=== PATIENT | male | born 1970 | race Caucasian/White ===

== ENCOUNTER 2016-05-20 09:22 | Emergency (ER) | payer OTHER ==
--- NOTE | 2016-05-20 13:41 | ED NURSING NOTES ---
Clinical Report - Nurses [facility] [place] [address] 05/20/2016 9:26 Patient: MERI CARLOS TRIAGE Chief Complaint: (Vomiting Blood). --09:48 Henri Maciel R.N. 09:40 05/20/16. BP: 122/61. HR: 74. RR: 18. O2 saturation: 98%. Temp: 98.5 F. Pain level now 02/11. --09:48 Henri Maciel R.N. Weight: 117.9 kg stated. Height/Length: 73 inches Per Patient. BMI: 34.3. --09:47 Henri Maciel R.N. Medications RisperDAL Oral. --09:43 Henri Maciel R.N. Clozaril Oral. --09:44 Henri Maciel R.N. Allergies None. --09:44 Henri Maciel R.N. History ( Patient with history of schizophrenia. Normally get care at [facility] This started just prior to arrival and last night. Onset. (3 days ago). ( Patient states drinks heavily and has been vomiting blood since just [employer] or maybe past 3 days. States drank large quantities of ETOH last night or maybe has not drank for 3 days. Vomited in sink in ER. No blood seen). 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 SOCIAL HX: Smoker- current status unknown. Alcohol use. History of drug use: marijuana. FALL RISK ASSESSMENT: Fall risk assessment completed. No fall risk identified. --09:48 Henri Maciel R.N. Interventions ID band on patient. To room. --09:48 Henri Maciel R.N. PHYSICAL ASSESSMENT GENERAL / NEURO / PSYCH: Alert. Oriented X 4. Appears in no acute distress. RESPIRATORY: Respirations not labored. GI / : Abdomen soft and normal bowel sounds. SKIN: Skin is warm and dry. --09:49 Henri Maciel R.N. NURSING PROGRESS NOTES Patient gowned. Patient identifiers checked. Call light placed in reach. Bed placed in lowest position. --09:49 Henri Maciel R.N. 10:59 05/20/16. BP: 124/74. HR: 76. RR: 18. O2 saturation: 98%. Temp: 98 F. Pain level now 09/11. --11:00 Henri Maciel R.N. 10:46 05/20/2016 Site #1 started via IV in the right antecubital space with an 20g angiocath, with aseptic technique and good blood return; one attempt. Blood drawn: rainbow set. Labeled in the presence of the patient and sent to the lab. Saline lock flushed with 10 mL saline. --11:02 Henri Maciel R.N. 10:52 05/20/2016 Started bag #1 1000 mL IV Fluids IV NS (Saline); at 1000 mL/hr over 1 hour(s) via site #1 --11:02 Henri Maciel R.N. 10:52 05/20/2016 Zofran (Ondansetron HCl) IVP 4 mg given over 1 minute(s) via site #1. --11:02 Henri Maciel R.N. 11:35 05/20/2016 Started bag #1 1000 mL IV Fluids IV NS (Saline); at 1000 mL/hr over 1 hour(s) via site #1 --12:58 Henri Maciel R.N. 11:59 05/20/2016 IV Fluids IV NS Discontinued: bag #1 completed. Total amount infused: 1000 mL. --12:59 Henri Maciel R.N. ( Patient states feels better now. Taking PO fluids). --12:59 Henri Maciel R.N. 12:22 05/20/2016 Zofran (Ondansetron HCl) IVP 4 mg given. via site #1. --13:23 Henri Maciel R.N. 12:59 05/20/2016 IV Fluids IV NS Discontinued: bag #2 completed. Total amount infused: 1000 mL. --12:59 Henri Maciel R.N. 13:45 05/20/2016 Site #1 removed upon discharge. Catheter intact. Manual pressure and bandaid applied. --14:10 Maggie Rivas R.N. 14:02 05/20/2016 Phenergan (Promethazine HCl) IM 25 mg given. Given in the left deltoid. Confirmed 5 rights. --14:02 Henri Maciel R.N. DISPOSITION / DISCHARGE 13:00. Condition at departure: improved. ( Patient ambulated to bathroom, voided and collected urine sample. Denies nausea or vomiting). --14:03 Henri Maciel R.N. 13:45. ( Patient got up and dressed and then had small emesis with small streaks of blood. Dr Peterson notified, orders received.). --14:05 Henri Maciel R.N. 14:09 05/20/16. BP: 119/83. HR: 88. RR: 16. O2 saturation: 100%. --14:11 Maggie Rivas R.N. Locked/Released at 05/20/2016 14:11 by Maggie Rivas R.N.
--- NOTE | 2016-05-20 13:41 | ED CLINICAL REPORT ---
Clinical Report - Physicians/Mid Levels [facility] [address] [place] [address] 05/20/2016 9:26 Patient: MERI CARLOS Time Seen: 10:00. Historian- patient. HISTORY OF PRESENT ILLNESS Chief Complaint: VOMITING BLOOD. This started just prior to arrival and has been moderate. (Heavy drinking for a year. Vomiting for 3-4 days. Vomiting blood today. No alcohol in 3 days). Is still present. It was abrupt in onset. The patient has had nausea and vomiting but not had dark stools or rectal bleeding or pain. No constipation, diarrhea or abdominal pain. (Nl bm yesterday Last drink 2-3 nights ago). Similar symptoms previously: None. REVIEW OF SYSTEMS The patient has had dizziness. He has had a sore throat, fever and a headache. No decreased vision, ear pain, difficulty breathing, skin rash or suicidal thoughts. No difficulty with urination. Schizophrenia - stable on meds, still hears voices. PAST HISTORY CHC Illness: Alcoholism, schizophrenia, Acne Ops: R knee. SOCIAL HISTORY Current every day smoker. Alcohol use; consumes six beers. ADDITIONAL NOTES The nursing notes have been reviewed. PHYSICAL EXAM Vital Signs: 05/20/2016 14:09 BP: 119/83. HR: 88. RR: 16. O2 saturation: 100%. 05/20/2016 10:59 BP: 124/74. HR: 76. RR: 18. O2 saturation: 98%. Temp: 98 F. 05/20/2016 09:40 BP: 122/61. HR: 74. RR: 18. O2 saturation: 98%. Temp: 98.5 F. Appearance: Alert. Anxious. Patient in moderate distress. Eyes: Eyes normal inspection. No scleral icterus. ENT: Pharynx normal. Neck: Normal inspection. CVS: Normal heart rate and rhythm. Heart sounds normal. Respiratory: No respiratory distress. Breath sounds normal. Abdomen: Soft and nontender. Skin: Skin warm. Normal skin color. Extremities: Extremities exhibit normal ROM. No lower extremity edema. Neuro: No alteration in mental status. LABS, X-RAYS, AND EKG Laboratory Tests: UA-Culture if indicated: (SHANNA: 05/20/2016 13:20) ( [facility] 05/20/2016 13:24) IP Test Result Flag Units (Reference) URINE COLOR YELLOW URINE APPEARANCE CLEAR URINE GLUCOSE NEGATIVE (NEGATIVE) URINE BILIRUBIN NEGATIVE (NEGATIVE) URINE KETONE 3+ (NEGATIVE) URINE SPECIFIC GRAVITY 1.015 (1.010-1.030) URINE PH 7.0 (5.0-8.0) URINE PROTEIN 1+ (NEGATIVE) URINE UROBILINOGEN 0.2 EU/dL (0.2-1.0) URINE NITRITE NEGATIVE (NEGATIVE) URINE BLOOD NEGATIVE (NEGATIVE) URINE LEUK ESTERASE NEGATIVE (NEGATIVE) CBC w Diff: (SHANNA: 05/20/2016 10:25) ( [facility] 05/20/2016 11:08) Final results Test Result Flag Units (Reference) WHITE BLOOD COUNT 6.2 K/uL (4.5-11.5) RED BLOOD COUNT 5.21 M/uL (4.50-5.90) HEMOGLOBIN 14.7 gm/dL (13.5-17.5) HEMATOCRIT 46.6 % (41.0-53.0) MEAN CELL VOLUME 89 fL (80-100) MEAN CORPUSCULAR HGB 28 pg (26-34) MEAN CORPUSCULAR HGB CONC 32 g/dL (31-37) RED CELL DISTRIBUTION WIDTH 13.5 % (11.6-14.8) PLATELET COUNT 116 L K/uL (150-400) LYMPH % 49.8 H % (25-40) MONO % 3.8 % (3-14) GRANULOCYTE % 46.4 PT with INR: (SHANNA: 05/20/2016 10:25) ( [facility] 05/20/2016 11:15) Final results Test Result Flag Units (Reference) INR 1.0 (0.8-1.2) Low Intensity Therapy: INR 1.5-2.0 PT range 18.5-23.1Mod.Intensity Therapy: INR 2.0-3.0 PT range 23.1-31.5High Intensity Therapy: INR 2.5-3.5 PT range 27.4-35.5High Intensity Therapy 2: INR 3.0-4.0 PT range 31.5-39.3 CMP: (SHANNA: 05/20/2016 10:25) ( MsgRcvd 05/20/2016 11:15) Final results Test Result Flag Units (Reference) GLUCOSE 117 H mg/dL (70-110) BUN 19 H mg/dL (7-18) CREATININE 0.9 mg/dL (0.6-1.3) Estimated GFR >60 mL/min Estimated GFR- >60 mL/min Note: Persistent reduction over 3 months in eGFR<60 mL/min/1.73 m2 defines CKD. Patients with eGFR values>=60 mL/min/1.73 m2 may also have CKD if evidence ofpersistent proteinuria. Additional information may be foundat www.kidney.org. SODIUM 145 mmol/L (136-145) POTASSIUM 3.6 mmol/L (3.5-5.1) CHLORIDE 103 mmol/L (98-107) CARBON DIOXIDE 35 H mmol/L (21-32) CALCIUM 9.7 mg/dL (8.5-10.1) TOTAL PROTEIN 8.3 H g/dL (6.4-8.2) ALBUMIN 4.9 g/dL (3.3-5.0) BILIRUBIN, TOTAL 0.7 mg/dL (0.0-1.0) ALKALINE PHOSPHATASE 59 U/L (46-116) AST (SGOT) 40 H U/L (15-37) ALT (SGPT) 88 H U/L (12-78) LIPASE 129 U/L (73-393) ETHYL ALCOHOL <3 L mg/dL (3-10) . PROGRESS AND PROCEDURES Course of Care: 13:33 05/20/16. recheck abd mild tederness Pt is given Zofran and phenergan for control of nausea and vomiting. He is given 2 liters of NS. His nausea and vomiting are significantly improved and should be self limiting. He had one small emesis prior to DC. I think home care with anti-emetics is warranted with recheck in 12 hours if vomiting persists is appropriate. Disposition: Discharged. Condition: stable. CLINICAL IMPRESSION Gloria Morrison syndrome Alcoholic gastritis INSTRUCTIONS (RECHECK IN ED IN 12 HOURS UNLESS PAIN IS BETTER OR STILL VOMITING CONSIDER ALCOHOL TREATMENT THE BLOOD IN THE VOMIT WAS FROM THE ESOPHAGUS IMMEDIATE RECHECK IF FEELING FAINT ON STANDING. NO ALCOHOL, ASPIRIN OR IBUPROFEN). Prescription Medications: Zofran 4 mg: Take 1 orally every six hours as needed for nausea/vomiting. Dispense ten (10). No refills. Substitution is permissible. Pepcid 20 mg tablets: Take 1 orally every 12 hours. Dispense thirty (30). No refills. Substitution is permissible. risperidone 2 mg #10 take at night. Follow-up: Follow up with your doctor. Call for the next available appointment. Understanding of the discharge instructions verbalized by patient and family. (Electronically signed by Meri Peterson MD 05/21/2016 12:23)
--- NOTE | 2016-05-20 13:41 | ED ORDER SUMMARY ---
..... Patient: MERI CARLOS OrderSheet [facility] VisitID: [id number] [address] [place] [address] 45y, M Registration Date/Time: 05/20/2016 ORDER SHEET Weight: 117.9 kg (stated) Allergies: None GENERAL ORDERS: CBC w Diff Urgent (10:05/20/2016 Tre JIANG) (Ack 10:08 Zohra) (11:02 GMarshall R.N.) CMP Urgent (10:05/20/2016 Tre JIANG) (Ack 10:08 Zohra) (11:02 GMarshall R.N.) UA-Culture if indicated Urgent (10:05/20/2016 Tre JIANG) (Ack 10:08 Zohra) (13:22 GMarshall R.N.) Lipase Urgent (10:05/20/2016 Tre JIANG) (Ack 10:08 Zohra) (11:02 GMarshall R.N.) PT with INR Urgent (10:05/20/2016 Tre JIANG) (Ack 10:08 oZhra) (11:02 GMarshall R.N.) Ethyl Alcohol Urgent (10:05/20/2016 Tre JIANG) (Ack 10:44 LTapper) (11:02 GMarshall R.N.) MEDICATION ORDERS: Phenergan IM 25 mg (NOW) (13:57 05/20/2016 Tre JIANG) (14:02 GMarshall R.N.) IV FLUIDS: IV NS with Folic Acid 1 mg/L, Multivitamin Concentrate Intravenous 1 amp/L, Thiamine HCl 100 mg/L: initial bolus none -, then 1000 mL/hr for X1 (NOW); Urgent (IV #1) (10:05/20/2016 Tre JIANG) (Ack 10:24 GMarshall R.N.) (12:58 GMarshall R.N.) IV NS : initial bolus none -, then 1000 mL/hr for 1h (NOW); Urgent (IV #2) (10:05/20/2016 Tre JIANG) (Ack 10:24 GMarshall R.N.) (11:02 GMarshall R.N.) Zofran IV 4 mg (NOW) (10:09 05/20/2016 Tre JIANG) (Ack 10:24 GMarshall R.N.) (11:02 GMarshall R.N.) Zofran IV 4 mg (NOW) (13:21 05/20/2016 GMarshall R.N. verbal order read back to Tre JIANG) (13:23 GMarshall R.N.) ORDER SHEET NOTES: [Electronically signed by Maggie Rivas R.N. (14:11 05/20/2016)] [Electronically signed by Meri Peterson MD (12:23 05/21/2016)] [Electronically locked/signed by Maggie Rivas R.N. (14:11 05/20/2016)]
--- NOTE | 2016-05-20 13:41 | ED NURSING NOTES ---
Clinical Report - Nurses [facility] [place] [address] 05/20/2016 9:26 Patient: MERI CARLOS TRIAGE Chief Complaint: (Vomiting Blood). --09:48 Henri Maciel R.N. 09:40 05/20/16. BP: 122/61. HR: 74. RR: 18. O2 saturation: 98%. Temp: 98.5 F. Pain level now 02/11. --09:48 Henri Maciel R.N. Weight: 117.9 kg stated. Height/Length: 73 inches Per Patient. BMI: 34.3. --09:47 Henri Maciel R.N. Medications RisperDAL Oral. --09:43 Henri Maciel R.N. Clozaril Oral. --09:44 Henri Maciel R.N. Allergies None. --09:44 Henri Maciel R.N. History ( Patient with history of schizophrenia. Normally get care at [facility].). This started just prior to arrival and last night. Onset. (3 days ago). ( Patient states drinks heavily and has been vomiting blood since just CHARRER or maybe past 3 days. States drank large quantities of ETOH last night or maybe has not drank for 3 days. Vomited in sink in ER. No blood seen). 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 SOCIAL HX: Smoker- current status unknown. Alcohol use. History of drug use: marijuana. FALL RISK ASSESSMENT: Fall risk assessment completed. No fall risk identified. --09:48 Henri Maciel R.N. Interventions ID band on patient. To room. --09:48 Henri Maciel R.N. PHYSICAL ASSESSMENT GENERAL / NEURO / PSYCH: Alert. Oriented X 4. Appears in no acute distress. RESPIRATORY: Respirations not labored. GI / : Abdomen soft and normal bowel sounds. SKIN: Skin is warm and dry. --09:49 Henri Maciel R.N. NURSING PROGRESS NOTES Patient gowned. Patient identifiers checked. Call light placed in reach. Bed placed in lowest position. --09:49 Henri Maciel R.N. 10:59 05/20/16. BP: 124/74. HR: 76. RR: 18. O2 saturation: 98%. Temp: 98 F. Pain level now 09/11. --11:00 Henri Maciel R.N. 10:46 05/20/2016 Site #1 started via IV in the right antecubital space with an 20g angiocath, with aseptic technique and good blood return; one attempt. Blood drawn: rainbow set. Labeled in the presence of the patient and sent to the lab. Saline lock flushed with 10 mL saline. --11:02 Henri Maciel R.N. 10:52 05/20/2016 Started bag #1 1000 mL IV Fluids IV NS (Saline); at 1000 mL/hr over 1 hour(s) via site #1 --11:02 Henri Maciel R.N. 10:52 05/20/2016 Zofran (Ondansetron HCl) IVP 4 mg given over 1 minute(s) via site #1. --11:02 Henri Maciel R.N. 11:35 05/20/2016 Started bag #1 1000 mL IV Fluids IV NS (Saline); at 1000 mL/hr over 1 hour(s) via site #1 --12:58 Henri Maciel R.N. 11:59 05/20/2016 IV Fluids IV NS Discontinued: bag #1 completed. Total amount infused: 1000 mL. --12:59 Henri Maciel R.N. ( Patient states feels better now. Taking PO fluids). --12:59 Henri Maciel R.N. 12:22 05/20/2016 Zofran (Ondansetron HCl) IVP 4 mg given. via site #1. --13:23 Henri Maciel R.N. 12:59 05/20/2016 IV Fluids IV NS Discontinued: bag #2 completed. Total amount infused: 1000 mL. --12:59 Henri Maciel R.N. 13:45 05/20/2016 Site #1 removed upon discharge. Catheter intact. Manual pressure and bandaid applied. --14:10 Maggie Rivas R.N. 14:02 05/20/2016 Phenergan (Promethazine HCl) IM 25 mg given. Given in the left deltoid. Confirmed 5 rights. --14:02 Henri Maciel R.N. DISPOSITION / DISCHARGE 13:00. Condition at departure: improved. ( Patient ambulated to bathroom, voided and collected urine sample. Denies nausea or vomiting). --14:03 Henri Maciel R.N. 13:45. ( Patient got up and dressed and then had small emesis with small streaks of blood. Dr Peterson notified, orders received.). --14:05 Henri Maciel R.N. 14:09 05/20/16. BP: 119/83. HR: 88. RR: 16. O2 saturation: 100%. --14:11 Maggie Rivas R.N. Locked/Released at 05/20/2016 14:11 by Maggie Rivas R.N.
--- NOTE | 2016-05-20 13:41 | ED ORDER SUMMARY ---
..... Patient: MERI CARLOS OrderSheet [facility] VisitID: [id number] [address] [place] [address] 45y, M Registration Date/Time: 05/20/2016 ORDER SHEET Weight: 117.9 kg (stated) Allergies: None GENERAL ORDERS: CBC w Diff Urgent (10:05/20/2016 Tre JIANG) (Ack 10:08 Zohra) (11:02 GMarshall R.N.) CMP Urgent (10:05/20/2016 Tre JIANG) (Ack 10:08 Zohra) (11:02 GMarshall R.N.) UA-Culture if indicated Urgent (10:05/20/2016 Tre JIANG) (Ack 10:08 Zohra) (13:22 GMarshall R.N.) Lipase Urgent (10:05/20/2016 Tre JIANG) (Ack 10:08 Zohra) (11:02 GMarshall R.N.) PT with INR Urgent (10:05/20/2016 Tre JIANG) (Ack 10:08 Zohra) (11:02 GMarshall R.N.) Ethyl Alcohol Urgent (10:05/20/2016 Tre JIANG) (Ack 10:44 LTapper) (11:02 GMarshall R.N.) MEDICATION ORDERS: Phenergan IM 25 mg (NOW) (13:57 05/20/2016 Tre JIANG) (14:02 GMarshall R.N.) IV FLUIDS: IV NS with Folic Acid 1 mg/L, Multivitamin Concentrate Intravenous 1 amp/L, Thiamine HCl 100 mg/L: initial bolus none -, then 1000 mL/hr for X1 (NOW); Urgent (IV #1) (10:05/20/2016 Tre JIANG) (Ack 10:24 GMarshall R.N.) (12:58 GMarshall R.N.) IV NS : initial bolus none -, then 1000 mL/hr for 1h (NOW); Urgent (IV #2) (10:05/20/2016 Tre JIANG) (Ack 10:24 GMarshall R.N.) (11:02 GMarshall R.N.) Zofran IV 4 mg (NOW) (10:09 05/20/2016 Tre JIANG) (Ack 10:24 GMarshall R.N.) (11:02 GMarshall R.N.) Zofran IV 4 mg (NOW) (13:21 05/20/2016 GMarshall R.N. verbal order read back to Tre JIANG) (13:23 GMarshall R.N.) ORDER SHEET NOTES: [Electronically signed by Maggie Rivas R.N. (14:11 05/20/2016)] [Electronically signed by Meri Peterson MD (12:23 05/21/2016)] [Electronically locked/signed by Maggie Rivas R.N. (14:11 05/20/2016)]
--- NOTE | 2016-05-21 12:23 | ED MAR SUMMARY ---
..... Medication Administration Record [facility] [address] [place] [address] Patient: MERI CARLOS Visit ID: [id number] 45y, M Weight: 117.9 kg Height/Length: 73 in BMI: 34.3 ALLERGIES: None Start 10:52 05/20/2016 Henri Maciel R.N., Stop 11:59 05/20/2016 Henri Maciel R.N. Medication Administered: IV NS (SALINE), Dose: IV Fluids over 1 hour(s), Rate: 1000 mL/hr, Dispensed: 1000 mL bag, Site: #1 right AC. Medication Ordered: IV NS : initial bolus none -, then 1000 mL/hr for 1h (NOW); Urgent (IV #2). Given 10:05/20/2016 Henri Maciel R.N. Medication Administered: ZOFRAN [IVP] (ONDANSETRON HCL), Dose: 4 mg IVP over 1 minute(s), Site: #1 right AC. Medication Ordered: Zofran IV 4 mg (NOW). Start 11:35 05/20/2016 Henri Maciel R.N., Stop 12:59 05/20/2016 Henri Maciel R.N. Medication Administered: IV NS (SALINE), Dose: IV Fluids over 1 hour(s), Rate: 1000 mL/hr, Dispensed: 1000 mL bag, Site: #1 right AC. Medication Ordered: IV NS with Folic Acid 1 mg/L, Multivitamin Concentrate Intravenous 1 amp/L, Thiamine HCl 100 mg/L: initial bolus none -, then 1000 mL/hr for X1 (NOW); Urgent (IV #1). Given 12:22 05/20/2016 Henri Maciel R.N. Medication Administered: ZOFRAN [IVP] (ONDANSETRON HCL), Dose: 4 mg IVP, Site: #1 right AC. Medication Ordered: Zofran IV 4 mg (NOW). Given 14:02 05/20/2016 Henri Maciel R.N. Medication Administered: PHENERGAN [IM] (PROMETHAZINE HCL), Dose: 25 mg IM. Medication Ordered: Phenergan IM 25 mg (NOW).
--- NOTE | 2016-05-21 12:23 | ED MED RECONCILIATION SUMMARY ---
Patient: KRAIG CARLOS Medication Reconciliation Report [facility] VisitID: [id number] [address] [place] [address] 45y, M Registration Date/Time: 05/20/2016 Weight: 117.9 kg Height/Length: 73 in. BMI: 34.3 ALLERGIES: None The patient's Home Medications are listed below: THE FOLLOWING MEDICATIONS NEED TO BE RECONCILED: Clozaril Oral RisperDAL Oral The source(s) of the original Home Medication information: Not obtained. The following Medications were given to the patient in the Emergency Department: IV NS IV Fluids bolus 0, then 1000 mL/hr, administered: 05/20/2016 10:52:00 AM Zofran [IVP] IVP 4 mg, administered: 05/20/2016 10:52:00 AM IV NS IV Fluids bolus 0, then 1000 mL/hr, administered: 05/20/2016 11:35:00 AM Zofran [IVP] IVP 4 mg, administered: 05/20/2016 12:22:00 PM Phenergan [IM] IM 25 mg, administered: 05/20/2016 2:02:00 PM The following Medications were prescribed to the patient: Zofran 4 mg: Take 1 orally every six hours as needed for nausea/vomiting. Dispense ten (10). No refills. Substitution is permissible. -- Kraig Peterson MD risperidone 2 mg #10 take at night. -- Kraig Peterson MD Pepcid 20 mg tablets: Take 1 orally every 12 hours. Dispense thirty (30). No refills. Substitution is permissible. -- Kraig Peterson MD
--- NOTE | 2016-05-21 12:23 | ED DISCHARGE INSTRUCTIONS ---
Patient: MERI CARLOS General Instructions [facility] VisitID: [id number] [address] [place] [address] 45y, M Registration Date/Time: 05/20/2016 Gloria Morrison syndrome Alcoholic gastritis INSTRUCTIONS (RECHECK IN ED IN 12 HOURS UNLESS PAIN IS BETTER OR STILL VOMITING CONSIDER ALCOHOL TREATMENT THE BLOOD IN THE VOMIT WAS FROM THE ESOPHAGUS IMMEDIATE RECHECK IF FEELING FAINT ON STANDING. NO ALCOHOL, ASPIRIN OR IBUPROFEN). Prescription Medications: Zofran 4 mg: Take 1 orally every six hours as needed for nausea/vomiting. Dispense ten (10). No refills. Substitution is permissible. Pepcid 20 mg tablets: Take 1 orally every 12 hours. Dispense thirty (30). No refills. Substitution is permissible. risperidone 2 mg #10 take at night. Follow-up: Follow up with your doctor. Call for the next available appointment. Understanding of the discharge instructions verbalized by patient and family. ADDITIONAL INFORMATION Gastritis (Adult) Gastritis is an irritation of the stomach lining. It can be acute (recent) or chronic (lasting a long time). Gastritis can be caused by overuse of alcohol or anti-inflammatory medications (such as aspirin, ibuprofen, or prednisone). H pyloriinfection can also cause chronic gastritis. Gastritis can cause a dull ache or burning pain in the upper abdomen. Other symptoms include nausea, vomiting, loss of appetite, and belching or bloating. Blood in the vomit or stools (red or black) is a sign of bleeding in the stomach. This requires immediate medical attention. Tests for H pyloriare used to screen for bacterial infection. If no infection is found, gastritis can be treated by stopping the cause and treating with antacids plus an acid maida medication. If H pylori infection is found, antibiotics will also be prescribed. Persons 55 years and older may undergo other tests before treatment is started. Two common tests are used to evaluate your symptoms. An upper GI series is an x-ray taken after you drink a chalky liquid called barium. This coats the stomach and allows the doctor to view any problems in the stomach on the x-ray. Another test is called endoscopy, during which a long thin tube called an endoscope is passed down your throat to the stomach. A camera at the end of the scope allows the doctor to view inside the stomach to check the cause of your symptoms. Home Care: Take the prescribed acid maida medication for the full course of treatment even if you begin to feel better sooner. This medication can take up to several days to fully control your symptoms. If you cant afford the prescribed medication, you can try jjar-zck-zwtddzh acid blockers, such as Pepcid AC, Tagamet, Zantac, or Aciphex. If these do not relieve your symptoms, a stronger acid-maida can be tried, such as Prilosec OTC. If you have been prescribed an antibiotic to treat H pyloriinfection, finish the full course of medication. Do so even if you begin to feel better sooner. If you stop the medication too soon, the infection can return and be harder to treat. You can use antacids, such as Tums, Rolaids, Mylanta, or Maalox, for pain. This will be useful the first few days after starting acid blockers when the blockers havent started working yet. Follow the directions on the label. Liquid antacids may work better than tablets. Note that antacids can interfere with absorption of certain medications. Specifically, do not take Tagamet (cimetidine), Zantac (ranitidine), or Carafate (sucralfate) within 1 hour of taking an antacid. Talk with your pharmacist if you have any questions. Symptoms of gastritis can be worsened by certain foods. Limit or avoid fatty, fried, and spicy foods, as well as coffee, chocolate, mint, and foods with high acid content such as tomatoes and citrus fruit and juices (orange, grapefruit, lemon). Avoid alcohol, caffeine, and tobacco, which can delay healing. Avoid aspirin and anti-inflammatory medications such as ibuprofen (Advil, Motrin) and naproxen (Naprosyn, Aleve). Acetaminophen (Tylenol) is safe to use. Do not take more than the amount listed on the label. Follow Up with your doctor, or as advised by our staff. Further testing may be needed. If you do not improve over the next 4 days, contact your doctor. If you had an x-ray, CT scan, or ECG (electrocardiogram), it will be reviewed by a specialist. Youll be notified of any new findings that affect your care. Get Prompt Medical Attention if any of the following occur: Stomach pain gets worse or moves to the lower right abdomen (appendix area) Chest pain appears or gets worse, or spreads to the back, neck, shoulder, or arm Frequent vomiting (cant keep down liquids) Blood in the stool or vomit (red or black in color) Feeling weak or dizzy, fainting, or trouble breathing Fever of 100.4F (38C) or higher, or as directed by your healthcare provider GI Bleeding (Upper), Stable There are signs that you have bled from your upper intestinal tract (esophagus, stomach or upper intestine). This may be due to: Repeated vomiting which may cause a small tear in the lining of the esophagus, An ulcer in the stomach or duodenum (upper intestine) Severe gastritis (from use of alcohol, aspirin or anti-inflammatory drugs) Esophageal varices (enlarged veins in the esophagus) may also cause bleeding like this. Your exam today showed that you have not lost a large amount of blood and your condition is stable. Bleeding from the upper GI tract causes the stool to turn black. Home Care: 1) If your bleeding is due to an ulcer or gastritis, an acid-blocking medicine will help. Unless an acid maida was prescribed (or if you cannot afford one that was prescribed), you may use kiln-lds-gbmiisu drugs such as Pepcid AC (famotidine), Tagamet (cimetidine) or Zantac (ranitidine). These begin to work within a few hours. Prilosec OTC (omeprazole) is a new type of acid maida which may be more effective. It takes up to four days for its full effect. You may get additional short-term relief by taking antacids (Mylanta or Maalox). It should be taken one hour after meals and at bedtime. Do not take Tagamet (cimetidine), Zantac (ranitidine) or Carafate (sucralfate) within one hour of an antacid. 2) Avoid factors which increase stomach acid. These include cigarettes, caffeine (coffee, joann, teas) and stress. 3) Avoid substances that irritate your stomach. These include aspirin and anti-inflammatory drugs (such as ibuprofen, Advil, Motrin, naproxen, Aleve, Naprosyn), alcohol and spicy foods. Prednisone and related prescription drugs can cause an ulcer. Discuss with your doctor if you are taking these. 4) Take any prescribed medicine as directed to promote healing. 5) If alcohol is a possible cause of your GI bleeding, it is urgent that you talk with your doctor about ways to help you quit. Follow Up with your doctor as advised. Get Prompt Medical Attention if any of the following occur: -- Stomach pain worsens -- Pain appears, worsens or spreads to the neck, back, shoulder or arm -- You vomit blood (red or black color) -- You feel weak or dizzy, or you faint -- You have fever or abdominal swelling -- Red blood in the stool You have been given the following additional information: Gastritis (Adult) GI Bleed, Upper (Stable) (Electronically signed by Meri Peterson MD 05/21/2016 12:23)
--- NOTE | 2016-05-21 12:23 | ED MED RECONCILIATION SUMMARY ---
Patient: KRAIG CARLOS Medication Reconciliation Report [facility] VisitID: [id number] [address] [place] [address] 45y, M Registration Date/Time: 05/20/2016 Weight: 117.9 kg Height/Length: 73 in. BMI: 34.3 ALLERGIES: None The patient's Home Medications are listed below: THE FOLLOWING MEDICATIONS NEED TO BE RECONCILED: Clozaril Oral RisperDAL Oral The source(s) of the original Home Medication information: Not obtained. The following Medications were given to the patient in the Emergency Department: IV NS IV Fluids bolus 0, then 1000 mL/hr, administered: 05/20/2016 10:52:00 AM Zofran [IVP] IVP 4 mg, administered: 05/20/2016 10:52:00 AM IV NS IV Fluids bolus 0, then 1000 mL/hr, administered: 05/20/2016 11:35:00 AM Zofran [IVP] IVP 4 mg, administered: 05/20/2016 12:22:00 PM Phenergan [IM] IM 25 mg, administered: 05/20/2016 2:02:00 PM The following Medications were prescribed to the patient: Zofran 4 mg: Take 1 orally every six hours as needed for nausea/vomiting. Dispense ten (10). No refills. Substitution is permissible. -- Kraig Peterson MD risperidone 2 mg #10 take at night. -- Kraig Peterson MD Pepcid 20 mg tablets: Take 1 orally every 12 hours. Dispense thirty (30). No refills. Substitution is permissible. -- Kraig Peterson MD
--- NOTE | 2016-05-21 12:23 | ED MAR SUMMARY ---
..... Medication Administration Record [facility] [address] [place] [address] Patient: MERI CARLOS Visit ID: [id number] 45y, M Weight: 117.9 kg Height/Length: 73 in BMI: 34.3 ALLERGIES: None Start 10:52 05/20/2016 Henri Maciel R.N., Stop 11:59 05/20/2016 Henri Maciel R.N. Medication Administered: IV NS (SALINE), Dose: IV Fluids over 1 hour(s), Rate: 1000 mL/hr, Dispensed: 1000 mL bag, Site: #1 right AC. Medication Ordered: IV NS : initial bolus none -, then 1000 mL/hr for 1h (NOW); Urgent (IV #2). Given 10:05/20/2016 Henri Maciel R.N. Medication Administered: ZOFRAN [IVP] (ONDANSETRON HCL), Dose: 4 mg IVP over 1 minute(s), Site: #1 right AC. Medication Ordered: Zofran IV 4 mg (NOW). Start 11:35 05/20/2016 Henri Maciel R.N., Stop 12:59 05/20/2016 Henri Maciel R.N. Medication Administered: IV NS (SALINE), Dose: IV Fluids over 1 hour(s), Rate: 1000 mL/hr, Dispensed: 1000 mL bag, Site: #1 right AC. Medication Ordered: IV NS with Folic Acid 1 mg/L, Multivitamin Concentrate Intravenous 1 amp/L, Thiamine HCl 100 mg/L: initial bolus none -, then 1000 mL/hr for X1 (NOW); Urgent (IV #1). Given 12:22 05/20/2016 Henri Maciel R.N. Medication Administered: ZOFRAN [IVP] (ONDANSETRON HCL), Dose: 4 mg IVP, Site: #1 right AC. Medication Ordered: Zofran IV 4 mg (NOW). Given 14:02 05/20/2016 Henri Maciel R.N. Medication Administered: PHENERGAN [IM] (PROMETHAZINE HCL), Dose: 25 mg IM. Medication Ordered: Phenergan IM 25 mg (NOW).
== END 2016-05-20 13:50 | disposition home or self-care (01) ==
LOC: ED SRH 09:22
DX: K29.21 Alcoholic gastritis with bleeding (principal); K22.6 Gastro-esophageal laceration-hemorrhage syndrome; F17.200 Nicotine dependence, unspecified, uncomplicated
CPT/HCPCS: 90004; 90100; 92010; 92235; 94060; 95059